=== PATIENT | male | born 1955 | race Caucasian/White ===

== ENCOUNTER 2017-07-21 17:15 | Emergency (ER) | payer OTHER ==
[~2017-07-21] VITALS: Ht 177.8 cm; Wt 97.2 kg
[2017-07-21] MEDS ORDERED: SODIUM CHLORIDE FLUSH 10ML SYR IVF ONE (18:30)
[2017-07-21] MEDS ORDERED: SODIUM CHLORIDE 0.9% 1,000ML IVBOLUS ONE (18:30)
[2017-07-21] MEDS ORDERED: ONDANSETRON 2MG/ML, 2ML IVPush ONE (18:30)
[2017-07-21 18:33] LABS: BASOPHILS # (AUTO) 0.02 x10^3/uL (0-0.1); BASOPHILS % (AUTO) 0 % (0-1); EOSINOPHILS # (AUTO) 0.03 x10^3/uL (0-0.4); EOSINOPHILS % (AUTO) 0 % (1-7); LYMPHOCYTES # (AUTO) 0.38 x10^3/uL (1-3.4); LYMPHOCYTES % (AUTO) 2 % (22-44); MD NO; MEAN CORPUSCULAR HEMOGLOBIN 28.9 pg (27.0-34.8); MEAN CORPUSCULAR HGB CONC 33.4 g/dL (32.4-35.8); MEAN CORPUSCULAR VOLUME 86.5 fL (80-100); MEAN PLATELET VOLUME 8.5 fL (7.4-10.4); MONOCYTES # (AUTO) 0.49 x10^3/uL (0.2-0.8); MONOCYTES % (AUTO) 3 % (2-9); NEUTROPHILS # (AUTO) 14.65 x10^3/uL (1.8-6.8); NEUTROPHILS % (AUTO) 94 % (42-75); PLATELET COUNT 287 x10^3/uL (130-400); RED BLOOD COUNT 5.92 x10^6/uL (3.82-5.3)
[2017-07-21 18:45] LABS: ALANINE AMINOTRANSFERASE 52 U/L (12-78); ANION GAP 8 mmol/L (5-15); CALCIUM 9.1 mg/dL (8.5-10.1); CHLORIDE 104 mmol/L (98-107); CREATININE 1.06 mg/dL (0.55-1.02)
[2017-07-21 18:47] LABS: ALKALINE PHOSPHATASE 73 U/L (45-117); BILIRUBIN,TOTAL 0.8 mg/dL (0.2-1.0)
[2017-07-21 18:58] LABS: TROPONIN I < 0.015 ng/mL (0.000-0.045)
[2017-07-21] MEDS ORDERED: ONDANSETRON 2MG/ML, 2ML ONE (19:13)
[2017-07-21 20:01] LABS: MICROSCOPIC INDICATED
[2017-07-21 20:18] LABS: CULTURE INDICATED? NO
[2017-07-21] MEDS ORDERED: OMNIPAQUE 350 MG/ML, 100ML BOTTLE ONE (20:44)
[2017-07-21] MEDS ORDERED: DICYCLOMINE 10 MG/ML, 2ML IM ONE (21:30)
[2017-07-21] MEDS ORDERED: DICYCLOMINE 10 MG/ML, 2ML ONE (21:41)
[2017-07-21 21:47] VITALS: BP 109/58
== END 2017-07-21 22:04 | disposition home or self-care (01) ==
LOC: EDSEX 17:15 → ED 22:00
DX: E86.0 Dehydration (principal); R19.7 Diarrhea, unspecified
CPT/HCPCS: 36415; 74177; 80053; 81001; 83690; 84484; 85025; 93005; 96361; 96372; 96374; 99285; J0500; J2405; J7030; Q9967